=== PATIENT | male | born 1960 | race Caucasian/White ===

== ENCOUNTER 2016-07-24 11:38 | Emergency (ER) | payer OTHER ==
[~2016-07-24] VITALS: Wt 72.7 kg
[~2016-07-24 11:38] MED LIST: ACET500C5 PO; ALBU18HF INHALATION; ALBU8.5H3 INH; ALBU8.5H5 INH; AMOX1TAB10 PO; AZIT250T94 PO; BCL80INH INH; BECL8.7A INH; BENZ100C70 PO; GUAI118L94 PO; IBUP400T22 PO; IPRA3AMP INH; LEVO500T72 PO; LEVO750T25 PO; NEBU1EAC MC; PRED20TA PO; PRED50TA PO
[2016-07-24] MEDS ORDERED: ALBUTEROL 0.5% (NEB) 2.5 MG/0.5 ML AMP HHN STA (12:07)
[2016-07-24] MEDS ORDERED: DEXAMETHASONE 10 MG/ML 1 ML INJ IM ONE (12:30)
[2016-07-24] MEDS ORDERED: IPRATROPIUM (NEB) 0.5 MG/2.5 ML AMP HHN ONE (12:30)
--- NOTE | 2016-07-24 12:56 | RADRPT ---
PROCEDURE: XR Chest. CLINICAL INDICATION: Cough and shortness of breath. TECHNIQUE: Two views. Frontal and lateral. COMPARISON: 05/06/2016. FINDINGS: The lungs are clear. There is mild left upper lobe air space disease consistent with pneumonia. A possible nodule is pre sent in the right mid lung zone measuring 1.5 cm. The lungs are otherwise clear. There is no pleural effusion. There is no pneumothorax. IMPRESSION: 1. Mild left upper lobe pneumonia. 2. Possible nodule in the right mid lung zone. Correlation with CT scan of chest without contrast advised. 3. Otherwise normal chest x-ray. RPTAT: QQ .Car Porras MD, MD Date Time Electronically viewed and signed by .Car Porras MD, MD on 07/24/2016 12:56 .R/
[2016-07-24] MEDS ORDERED: LEVO750T25 PO (13:01)
[2016-07-24] MEDS ORDERED: ALBU8.5H3 INH (13:02)
[2016-07-24] MEDS ORDERED: D-ME473S18 PO (13:02)
[2016-07-24] MEDS ORDERED: ALBU2.5V3 NEB (13:06)
[2016-07-24] MEDS ORDERED: IBUP-1542 PO (13:07)
--- NOTE | 2016-07-24 13:13 | ERD ---
ER Documentation Chief Complaint Date/Time DATE: 07/24/16 TIME: 13:08 Chief Complaint sob, cough. airway intact, speaking in complete sentances. HPI This is a 56-year-old male presents to the ER with a cough for the last 2 days. Patient states that cough is productive and constant. Patient states that he began to feel short of breath yesterday however today shortness of breath is gotten worse. Patient also complaining of chest pain with coughing. He states that he has body pain. He denies any fevers or chills. Patient has a past medical history of asthma and has had pneumonia in the past. Patient has an extensive smoking history however he quit recently secondary to his doctor telling him he may have lung cancer. Has not followed up with any specialists. ROS 12 point review of systems was done, all negative except per HPI. Medications Home Meds Active Scripts Ibuprofen* (Motrin*) 600 Mg Tab, 600 MG PO Q6, #30 TAB Prov:CHIDI TAN 07/24/16 Albuterol Sulfate* (Albuterol Sulfate* Neb) 0.083%-3 Ml Neb, 2.5 MG NEB Q4 Y for SHORTNESS OF BREATH, #30 EA Prov:CHIDI TAN 07/24/16 Dextromethorphan Hb-Promethazine Hcl (Promethazine DM Syrup) 473 Ml Syrup, 10 ML PO Q6H Y for COUGH, #4 OZ Prov:CHIDI TAN 07/24/16 Albuterol Sulfate* (Proair HFA*) 8.5 Gm Hfa.aer.ad, 2 PUFF INH Q4, #1 INHALER Prov:CHIDI TAN 07/24/16 Levofloxacin* (Levaquin*) 750 Mg Tablet, 750 MG PO DAILY for 5 Days, TAB Prov:CHIDI TAN 07/24/16 Levofloxacin* (Levaquin*) 750 Mg Tablet, 750 MG PO DAILY for 5 Days, TAB Prov:JOSIE BARRAGAN PA-C 05/06/16 Albuterol Sulfate* (Ventolin HFA*) 18 Gm Hfa.aer.ad, 2 PUFF INHALATION Q4H, #1 INHALER Prov:JOSIE BARRAGAN PA-C 10/25/16 Prednisone* (Prednisone*) 50 Mg Tablet, 50 MG PO DAILY for 5 Days, TAB Prov:REN PEREZ NP 11/20/15 Guaifenesin-Codeine Phosphate* (Guaifenesin* with Codeine Liq) 120 Ml Liquid, 5 ML PO Q4H for COUGH, #60 ML Prov:REN PEREZ NP 11/20/15 Beclomethasone Dip (Qvar 80) 1 Puff Inha, 2 PUFF INH BID, #1 INHALER RINSE MOUTH AFTER EACH USE Prov:REN PEREZ NP 11/20/15 Albuterol Sulfate* (Proair HFA*) 8.5 Gm Hfa.aer.ad, 2 PUFF INH Q4H Y for WHEEZING AND SOB, #1 INHALER Prov:REN PEREZ NP 11/20/15 Acetaminophen* (Tylophen*) 500 Mg Capsule, 1 CAP PO Q6H Y for PAIN AND OR ELEVATED TEMP, #30 CAP 0 Refills Prov:CHAPARRO BRANDC 10/15/15 Ibuprofen* (Motrin*) 400 Mg Tab, 400 MG PO Q6, #30 TAB 0 Refills Prov:CHAPARRO BRAND-C 10/15/15 Amox Tr/Potassium Clavulanate (Amox Tr-K Clv 875-125 Mg Tab) 1 Tab Tablet, 1 TAB PO BID, #20 TAB 0 Refills Prov:CHAPARRO BRAND-C 10/15/15 Benzonatate* (Tessalon Perle*) 100 Mg Capsule, 100 MG PO Q8H Y for COUGH, #30 CAP Prov:REN PEREZ NP 10/01/15 Beclomethasone Dip* (Qvar 40*) 7.3 Gm Inha, 2 PUFF INH BID, #1 INHALER Prov:REN PEREZ NP 10/01/15 Levofloxacin* (Levaquin*) 500 Mg Tablet, 500 MG PO DAILY for 7 Days, TAB Prov:REN PEREZ NP 10/01/15 Guaifenesin-Codeine Phosphate* (Guaifenesin* with Codeine Liq) 120 Ml Liquid, 5 ML PO Q4H for COUGH, #60 ML Prov:REN PEREZ [employer] 10/01/15 Prednisone* (Prednisone*) 50 Mg Tablet, 50 MG PO DAILY for 5 Days, TAB Prov:REN PEREZ [employer] 10/01/15 Albuterol Sulfate* (Proair HFA*) 8.5 Gm Hfa.aer.ad, 2 PUFF INH Q4H Y for WHEEZING AND SOB, #1 INHALER Prov:REN PEREZ [employer] 10/01/15 Beclomethasone Dip* (Qvar 40*) 7.3 Gm Inha, 2 PUFF INH BID, #1 INH Prov:REN PEREZ [employer] 08/15/15 Albuterol Sulfate* (Proair HFA*) 8.5 Gm Hfa.aer.ad, 2 PUFF INH Q4H Y for WHEEZING AND SOB, #1 INHALER Prov:REN PEREZ [employer] 08/15/15 Azithromycin* (Zithromax*) 250 Mg Tablet, 250 MG PO .ZPACK DIRECTED, #6 TAB TAKE 500 MG (2 TABS) THE FIRST DAY THEN 250 MG (1 TAB) DAYS 2-5 Prov:REN PEREZ [employer] 08/15/15 Nebulizer* (Nebulizer*) 1 Pkt Each, 1 EACH DIRECTED, #1 DME 0 Refills Prov:MAURICE BRAGA DO 06/27/15 Prednisone* (Prednisone*) 20 Mg Tab, 60 MG PO DAILY for 4 Days, TAB Prov:MAURICE BRAGA DO 06/27/15 Ipratropium-Albuterol (Ipratropium-Albuterol) 0.5-3 Mg/3 Ml Ampul.neb, 3 ML INH Q4H Y for SHORTNESS OF BREATH, #30 AMP Prov:MAURICE BRAGA DO 06/27/15 Albuterol Sulfate* (Albuterol Sulfate* HFA) 8.5 Gm Hfa.aer.ad, 1-2 PUFF INH Q4 Y for SHORTNESS OF BREATH, #1 EA Prov:MAURICE BRAGA DO 06/27/15 Azithromycin* (Zithromax*) 250 Mg Tablet, 250 MG PO .ZPACK DIRECTED, #6 TAB TAKE 500 MG (2 TABS) THE FIRST DAY THEN 250 MG (1 TAB) DAYS 2-5 Prov:MARY LOUCIARAANTHONYNGUYỄNErick LeeKaruna ALBERTO 06/27/15 Albuterol Sulfate* (Albuterol Sulfate* HFA) 8.5 Gm Hfa.aer.ad, 1-2 PUFF INH Q4 Y for SHORTNESS OF BREATH, #1 EA Prov:ANA FLOWERS PA-C 12/25/14 Allergies Allergies: Coded Allergies: No Known Drug Allergies (Verified Allergy, Unknown, 05/06/16) PMhx/Soc History of Surgery: No Anesthesia Reaction: No Hx Neurological Disorder: No Hx Respiratory Disorders: Yes (asthma , PNEUMONIA ) Hx Cardiac Disorders: No Hx Psychiatric Problems: No Hx Miscellaneous Medical Probl: No Hx Alcohol Use: No Hx Substance Use: No Hx Tobacco Use: Yes Smoking Status: Current every day smoker Physical Exam Vitals Vital Signs Date Time Temp Pulse Resp B/P Pulse Ox O2 Delivery O2 Flow Rate FiO2 07/24/16 11:48 98.2 77 20 132/87 100 Physical Exam GENERAL: The patient is well developed and appropriate for usual state of health , in no apparent distress. HEENT: Atraumatic. Conjunctivae are pink. Pupils equal, round, and reactive to light. Extraocular muscles are grossly intact. Bilateral tympanic membranes are clear with no evidence of erythema, effusion or dulling of the light reflex. The oropharynx is clear with no erythema or exudates. CHEST: Expiratory wheezing in all lung tobin. There is no rales rhonchi or crackles. Patient is speaking in full sentences he does not have any stridor, he is not tripoding. HEART: Regular rate and rhythm. No murmurs, clicks, rubs or gallops. NEURO: Alert and oriented. SKIN: etechia. The skin is warm and dry. Results 24 hrs Current Medications Medications (Trade) Dose Ordered Sig/Keturah Route PRN Reason Start Time Stop Time Status Last Admin Dose Admin Albuterol (Proventil 0.5% (Neb)) 10 mg ONCE STAT HHN 07/24/16 12:07 07/24/16 12:10 DC 07/24/16 12:53 Ipratropium [place] (Atrovent 0.02% (Neb)) 0.5 mg ONCE ONCE HHN 07/24/16 12:30 07/24/16 12:31 DC 07/24/16 12:53 Dexamethasone (Decadron) 10 mg ONCE ONCE IM 07/24/16 12:30 07/24/16 12:31 DC 07/24/16 12:19 Procedures/MDM This is a 56-year-old male that presents to the ER with cough, shortness of breath and body pain. Patient does have pneumonia on x-ray. Patient was given a nebulizing treatment here in the ER with albuterol and ipratropium. Patient felt significantly better after treatment. Patient's oxygen was always at 100% and he was not in any respiratory distress. She is afebrile and well- appearing. His EKG was normal and read by Dr. [id number] elevation no t wave inversion. Patient needs to follow-up with his primary care doctor within 1-2 days or return to ER sooner if symptoms worsen. My medical decision making shared with the patient he understands and agrees with plan. Departure Diagnosis: Primary Impression: Pneumonia Condition: Stable Patient Instructions: Pneumonia (Adult) Additional Instructions: Call your primary care doctor TOMORROW for an appointment during the next 1-2 days.See the doctor sooner or return here if your condition worsens before your appointment time. CHIDI TAN Jul 24, 2016 13:12
[2016-07-24 13:34] VITALS: TEMP 98.5
== END 2016-07-24 13:34 | disposition home or self-care (01) ==
LOC: FTE 11:38
DX: J18.9 Pneumonia, unspecified organism (principal); F17.210 Nicotine dependence, cigarettes, uncomplicated; J45.901 Unspecified asthma with (acute) exacerbation
CPT/HCPCS: 71020; 93005; 94644; 96372; J1100; Z7502; Z7610

== ENCOUNTER 2016-08-05 01:00 | Emergency (ER) | END 2016-08-05 15:13 | disposition home or self-care (01) | DX: J18.9 Pneumonia, unspecified organism (principal); J45.909 Unspecified asthma, uncomplicated; R40.2142 Coma scale, eyes open, spontaneous, at arrival to emergency department; R40.2252 Coma scale, best verbal response, oriented, at arrival to emergency department; R40.2362 Coma scale, best motor response, obeys commands, at arrival to emergency department; Z87.891 Personal history of nicotine dependence | CPT/HCPCS: 71010; 80048; 83540; 83605; 85025; 87040; 94644; J0456; J0696; J2930; Z7610 ==

== ENCOUNTER 2016-12-15 17:03 | Emergency (ER) | payer BC, OTHER ==
[~2016-12-15] VITALS: Ht 172.7 cm; Wt 72.0 kg
[~2016-12-15 17:03] MED LIST changes: -ACET500C5 PO; -ALBU18HF INHALATION; -ALBU8.5H3 INH; -ALBU8.5H5 INH; -AMOX1TAB10 PO; -AZIT250T94 PO; -BCL80INH INH; -BECL8.7A INH; -BENZ100C70 PO; +FLUT12HF2 IH; -GUAI118L94 PO; -IBUP400T22 PO; -IPRA3AMP INH; -LEVO500T72 PO; -LEVO750T25 PO; -NEBU1EAC MC; -PRED20TA PO; -PRED50TA PO
[2016-12-15 17:19] VITALS: Ht 172.7 cm; Wt 72.0 kg
[2016-12-15] MEDS ORDERED: ALBUTEROL 0.083% (NEB) 2.5 MG/3 ML AMP HHN STA ×2 (17:49→19:55)
--- NOTE | 2016-12-15 17:56 | ERD ---
ER Documentation Chief Complaint Date/Time DATE: 12/15/16 TIME: 17:54 Chief Complaint PRODUCTIVE COUGH TO GREENISH COLORED PHLEGM, FEVER HPI Patient is a 56-year-old male with a past medical history of bronchitis and multiple episodes of pneumonia and asthma who presents to the ED with productive cough, fever 3 days. States that he has had tactile fevers. He states that his symptoms are similar to what he has experienced in the past. He denies chest pain. Denies leg pain or leg swelling. Denies recent surgery or recent travel. Denies night sweats. Denies green or bloody sputum states that he has used his inhaler and breathing treatment at home which has helped minimally. Denies history of DVT or stroke. ROS All systems reviewed and are negative except as per history of present illness. Medications Home Meds Active Scripts Albuterol Sulfate* (Proair HFA*) 8.5 Gm Hfa.aer.ad, 2 PUFF INH Q4, #1 INHALER Prov:GALDINO COOPER PA-C 12/15/16 Azithromycin* (Zithromax*) 250 Mg Tablet, 250 MG PO .ZPACK DIRECTED, #6 TAB TAKE 500 MG (2 TABS) THE FIRST DAY THEN 250 MG (1 TAB) DAYS 2-5 Prov:GALDINO COOPER PA-C 12/15/16 Salmeterol Xinaf-Fluticasone* (Advair HFA*) 115/21 Aerosol Inhaler, 2 INH IH BID , #1 INHALER Prov:JILLIAN MCBRIDE MD 08/05/16 Discontinued Scripts Azithromycin* (Zithromax*) 500 Mg Tablet, 500 MG PO DAILY for 5 Days, TAB Prov:GALDINO COOPER PA-C 12/15/16 Allergies Allergies: Coded Allergies: No Known Drug Allergies (Verified Allergy, Unknown, 08/05/16) PMhx/Soc History of Surgery: No Anesthesia Reaction: No Hx Neurological Disorder: No Hx Respiratory Disorders: Yes (ASTHMA, multiple episodes of pneumonia) Hx Cardiac Disorders: No Hx Psychiatric Problems: No Hx Miscellaneous Medical Probl: No Hx Alcohol Use: No Hx Substance Use: No Hx Tobacco Use: No ("quit last month") FmHx Family History: No coronary disease, No diabetes, No other Physical Exam Vitals Vital Signs Date Time Temp Pulse Resp B/P Pulse Ox O2 Delivery O2 Flow Rate FiO2 12/15/16 20:41 98.6 88 18 96 Room Air 12/15/16 20:10 98 18 94 21 12/15/16 19:54 93 Room Air 12/15/16 18:19 113 19 94 21 12/15/16 17:19 98.7 113 19 108/63 94 Physical Exam GENERAL: Well-developed, well-nourished male. Appears in no acute distress. HEAD: Normocephalic, atraumatic. EYES: Pupils are equally reactive bilaterally. EOMs grossly intact. No conjunctival erythema. ENT: Moist mucous membranes. No uvula deviation. No kissing tonsils. No exudates. NECK: Supple. No lymphadenopathy or thyromegaly. No meningismus. negative kernig. negative brudinski. LUNG: Clear to auscultation bilaterally. No rhonchi, wheezing, rales or coarse breath sounds. HEART: Regular rate and rhythm. No murmurs, rubs or gallops. Extremities: Equal pulses bilaterally. No peripheral clubbing, cyanosis or edema. No unilateral leg swelling. NEUROLOGIC: Alert and oriented. Moving all four extremities. 5/5 strength in all extremities. Normal speech. Steady gait. SKIN: Normal color. Warm and dry. No rashes or lesions. Capillary refill < 2 seconds Results 24 hrs Current Medications Medications (Trade) Dose Ordered Sig/Keturah Route PRN Reason Start Time Stop Time Status Last Admin Dose Admin Albuterol (Proventil 0.083% (Neb)) 5 mg ONCE STAT HHN 12/15/16 17:49 12/15/16 17:51 DC 12/15/16 18:19 Ipratropium [place] (Atrovent 0.02% (Neb)) 0.5 mg ONCE ONCE HHN 12/15/16 18:00 12/15/16 18:01 DC 12/15/16 18:19 Methylprednisolone Sodium Succinate (Solu-Medrol) 125 mg ONCE ONCE IM 12/15/16 18:00 12/15/16 18:01 DC 12/15/16 18:13 Ceftriaxone Sodium (Rocephin) 1 gm ONCE ONCE IM 12/15/16 19:30 12/15/16 19:31 DC 12/15/16 19:34 Lidocaine (Xylocaine 1% (Mdv) 20 ml) 20 ml ONCE ONCE SC 12/15/16 19:30 12/15/16 19:31 DC 12/15/16 19:34 Albuterol (Proventil 0.083% (Neb)) 5 mg ONCE STAT HHN 12/15/16 19:55 12/15/16 19:56 DC 12/15/16 20:09 Procedures/MDM ER COURSE: I kept the patient and/or family informed of laboratory and diagnostic imaging results throughout the emergency room course. IMAGING STUDIES [place] [id number] Radiology Main Line: [phone] DIAGNOSTIC IMAGING REPORT Patient: CRISTINO JHAVERI : 1960 Age: 56 Sex: M MR #: [id number] DOS: 12/15/16 1749 Ordering MD: GALDINO COOPER PA-C Location: [facility] Room/Bed: PROCEDURE: XR Chest. CLINICAL INDICATION: 25-year-old male with history of asthma. Cough. TECHNIQUE: Single frontal view of the chest was obtained. COMPARISON: Chest x-ray 08/05/2016. FINDINGS: The soft tissues are normal. The bony elements are normal. The heart, cardiomediastinal silhouette and hilar structures are normal. The pulmonary vasculature is normal. There is a left-sided aorta. There is left apical pleural thickening. There is a consolidative nodular density in the left upper lobe. There are nodular densities which may be the result of mucus plugging in the right lower lobe above the right diaphragm. There are additional interstitial infiltrates along the lower left heart border. Lungs are mildly hyperinflated. There are additional reticular and nodular changes in the periphery of the right upper lobe which are stable. There is bilateral peribronchial thickening. The right costophrenic angle is obscured. The left costophrenic angle is normal. IMPRESSION: 1. There is consolidation in the left upper lobe with left apical pleural thickening. This finding is not improved as compared to 08/05/2016. A CT chest and TB skin testing are recommended for further evaluation. This may be the result of an inflammatory process such as TB or pneumonia. 2. Small airway disease with suspected mucus plugging in the right lower lobe peribronchial cuffing in the perihilar areas. 3. Peripheral infiltrates in the right upper lobe and left lower lung field. RPTAT:AAJJ Gen Zimmerman Physician Date Time Electronically viewed and signed by Gen Zimmerman Physician on 12/15/2016 18:39 JM/ CC: GALDINO COOPER PA-C MEDICATIONS Solu-Medrol 125 mg IM. Tolerated well with no adverse reaction PROCEDURES RT consult. Albuterol and Atrovent. MEDICAL DECISION MAKING: This is a 56-year-old male who presents with cough, fever. Vital signs were reviewed. Patient is afebrile. Patient is not hypoxic. Patient has a history of pneumonia. Chest x-ray and breathing treatment ordered. I reexamined patient after breathing treatment and he stated improvement in symptoms. Does not show signs of respiratory distress. X-rays of by radiologist shows There is consolidation in the left upper lobe with left apical pleural thickening. This finding is not improved as compared to 08/05/2016. A CT chest and TB skin testing are recommended for further evaluation. This may be the result of an inflammatory process such as TB or pneumonia.Small airway disease with suspected mucus plugging in the right lower lobe peribronchial cuffing in the perihilar areas. Peripheral infiltrates in the right upper lobe and left lower lung field. I consulted with Dr. Pavon regarding this patient who reviewed his imaging studies. Patient did not have night sweats or green or bloody sputum therefore I have low suspicion for TB and no CT will be ordered patient was given Rocephin here in the ED. Tolerated well. Patient will be sent home with azithromycin. At this point patient does not need to be admitted. Patient does not show signs of respiratory distress. DISCHARGE: At this time, patient is stable for discharge and outpatient management with no new complaints during the ER course. Patient was sent home with azithromycin and proair and a copy of imaging studies.. Patient will be discharged home with instructions to recheck for new or worsening symptoms such as fever, nausea, weakness, LOC and to follow up with primary care in the next 1-2 days. Patient was advised to return to the ER for any new or worsening symptoms. Plan was discussed and patient and/or family understands and agrees. Home instructions were given. Departure Diagnosis: Primary Impression: Pneumonia Condition: Stable GALDINO COOPER PA-C Dec 15, 2016 17:56
[2016-12-15] MEDS ORDERED: METHYLPREDNISOLONE 125 MG INJ IM ONE (18:00)
[2016-12-15] MEDS ORDERED: IPRATROPIUM (NEB) 0.5 MG/2.5 ML AMP HHN ONE (18:00)
--- NOTE | 2016-12-15 18:39 | RADRPT ---
PROCEDURE: XR Chest. CLINICAL INDICATION: 25-year-old male with history of asthma. Cough. TECHNIQUE: Single frontal view of the chest was obtained. COMPARISON: Chest x-ray 08/05/2016. FINDINGS: The soft tissues are normal. The bony elements are normal. The heart, cardiomediastinal silhouette and hilar structures are normal. The pulmonary vasculature is normal. There is a left-sided aorta. There is left apical pleural thickening. There is a consolidative nodular density in the left uppe r lobe. There are nodular densities which may be the result of mucus plugging in the right lower lo be above the right diaphragm. There are additional interstitial infiltrates along the lower left he art border. Lungs are mildly hyperinflated. There are additional reticular and nodular changes in the periphery of the right upper lobe which are stable. There is bilateral peribronchial thickening . The right costophrenic angle is obscured. The left costophrenic angle is normal. IMPRESSION: 1. There is consolidation in the left upper lobe with left apical pleural thickening. This finding is not improved as compared to 08/05/2016. A CT chest and TB skin testing are recommended for [facility] evaluation. This may be the result of an inflammatory process such as TB or pneumonia. 2. Small airway disease with suspected mucus plugging in the right lower lobe peribronchial cuffing in the perihilar areas. 3. Peripheral infiltrates in the right upper lobe and left lower lung field. RPTAT:AAJJ Physician Bill Date Time Electronically viewed and signed by Gen Zimmerman Physician on 12/15/2016 18:39 JANESSA/
[2016-12-15] MEDS ORDERED: AZIT500T3 PO (19:24)
[2016-12-15] MEDS ORDERED: AZIT250T94 PO (19:28)
[2016-12-15] MEDS ORDERED: ALBU8.5H3 INH (19:28)
[2016-12-15] MEDS ORDERED: CEFTRIAXONE 1 GM INJ IM ONE (19:30)
[2016-12-15] MEDS ORDERED: LIDOCAINE 1% (MDV) 20 ML INJ SC ONE (19:30)
[2016-12-15 20:41] VITALS: PULSE 88; RESP 18; TEMP 98.6
== END 2016-12-15 20:42 | disposition home or self-care (01) ==
LOC: FTE 17:03
DX: J18.9 Pneumonia, unspecified organism (principal); J45.909 Unspecified asthma, uncomplicated; Z87.891 Personal history of nicotine dependence
CPT/HCPCS: 71010; 93005; 94640; 94664; 96372; 99284; J0696; J2930; Z7610

== ENCOUNTER 2017-02-18 12:26 | Emergency (ER) | payer BC ==
[~2017-02-18] VITALS: Ht 170.2 cm; Wt 74.0 kg
[~2017-02-18 12:26] MED LIST changes: +ALBU8.5H3 INH; +AZIT250T94 PO
[2017-02-18 12:32] VITALS: Ht 170.2 cm; Wt 74.0 kg
[2017-02-18] MEDS ORDERED: ALBUTEROL 0.083% (NEB) 2.5 MG/3 ML AMP HHN STA ×2 (12:51→12:53)
[2017-02-18] MEDS ORDERED: CEFTRIAXONE 1 GM INJ IM ONE (13:00)
[2017-02-18] MEDS ORDERED: IPRATROPIUM (NEB) 0.5 MG/2.5 ML AMP HHN ONE (13:00)
[2017-02-18] MEDS ORDERED: LIDOCAINE 1% (MDV) 20 ML INJ SC ONE (13:00)
--- NOTE | 2017-02-18 14:30 | RADRPT ---
PROCEDURE: XR Chest AP portable CLINICAL INDICATION: Cough TECHNIQUE: An AP portable radiograph of the chest was submitted. COMPARISON: 12/15/2016 FINDINGS: Support Hardware: None Cardiovascular: The cardiovascular silhouette appears unremarkable. Lung Tobin: The patchy areas of alveolar infiltrate have resolved except for small residual density seen in the pulmonary apices again greater on the left than the right, but significantly improved o n the left. Pleural Spaces: No pneumothorax or pleural effusion is identified. Osseous Structures: The osseous structures appear intact. Soft Tissues: The soft tissues appear unremarkable. IMPRESSION: 1. The patchy areas of alveolar infiltrate seen in the lung tobin bilaterally have resolved except for slight persistent irregular density seen in the apices bilaterally which has significantly impr vandana on the left. 2. Otherwise, stable unremarkable chest. Physician Clifford Date Time Electronically viewed and signed by Physician Clifford on 02/18/2017 14:29 /
[2017-02-18] MEDS ORDERED: SULF1TAB31 PO (14:55)
[2017-02-18] MEDS ORDERED: CEPH-443 PO (14:55)
[2017-02-18] MEDS ORDERED: ALB.5NB20 INHALATION ×2 (14:55→15:07)
[2017-02-18] MEDS ORDERED: HYDR-906 PO (15:07)
--- NOTE | 2017-02-18 16:06 | ERD ---
ER Documentation Chief Complaint Date/Time DATE: 02/18/17 TIME: 15:54 Chief Complaint left below knee redness x2 days HPI 56-year-old male coming in complaining of erythema noted to the left side of his right knee. Redness has been there for 3 days. Patient denies any IV drug use. Denies fever. Has not taken medication for the symptoms. Does not hurt to move his knee. Does not recall a possible foreign body entering into wound. Patient also complaining of cough. He was diagnosed with PNA and given abx. Patient has persistent cough that is productive. Patient has history of asthma. He is requesting chest x-ray to determine if PNA has resolved. Patient has run out of albuterol and is requesting a refill. ROS All systems reviewed and are negative except as per history of present illness. Medications Home Meds Active Scripts Albuterol Sulfate* (Albuterol Sulfate* Neb) 20 Ml Nebu, 2.5 MG INHALATION Q4H, # 1 BOTTLE Prov:LÓPEZ BEST PA-C 02/18/17 Cephalexin* (Keflex*) 500 Mg Capsule, 500 MG PO QID for 7 Days, CAP Prov:LÓPEZ BEST PA-C 02/18/17 Sulfamethoxazole/Trimethoprim* (Bactrim Ds* Tablet) 1 Each Tablet, 1 TAB PO BID , #14 TAB Prov:LÓPEZ BEST PA-C 02/18/17 Albuterol Sulfate* (Proair HFA*) 8.5 Gm Hfa.aer.ad, 2 PUFF INH Q4, #1 INHALER Prov:GALDINO COOPER PA-C 12/15/16 Azithromycin* (Zithromax*) 250 Mg Tablet, 250 MG PO .ZPACK DIRECTED, #6 TAB TAKE 500 MG (2 TABS) THE FIRST DAY THEN 250 MG (1 TAB) DAYS 2-5 Prov:GALDINO COOPER PA-C 12/15/16 Salmeterol Xinaf-Fluticasone* (Advair HFA*) 115/21 Aerosol Inhaler, 2 INH IH BID , #1 INHALER Prov:JILLIAN MCBRIDE MD 08/05/16 Allergies Allergies: Coded Allergies: No Known Drug Allergies (Verified Allergy, Unknown, 08/05/16) PMhx/Soc History of Surgery: No Anesthesia Reaction: No Hx Neurological Disorder: No Hx Respiratory Disorders: Yes (ASTHMA, multiple episodes of pneumonia) Hx Cardiac Disorders: No Hx Psychiatric Problems: No Hx Miscellaneous Medical Probl: No Hx Alcohol Use: Yes Hx Substance Use: No Hx Tobacco Use: Yes ("quit last month") Smoking Status: Current every day smoker Physical Exam Vitals Vital Signs Date Time Temp Pulse Resp B/P Pulse Ox O2 Delivery O2 Flow Rate FiO2 02/18/17 14:10 95 19 99 21 02/18/17 12:32 98.5 99 20 126/77 99 Physical Exam Resp: Wheezing heard bilaterally. No focal consolidation heard on auscultation. Cardio: Regular rate and rhythm, no murmurs Abd: Soft, non tender, non distended. Normal bowel sounds Skin: 3 cm circular erythematous site on right medial leg. No lymph streaking. No fluctuance. mild TTP. Neuro intact. Results 24 hrs Current Medications Medications (Trade) Dose Ordered Sig/Keturah Route PRN Reason Start Time Stop Time Status Last Admin Dose Admin Ceftriaxone Sodium (Rocephin) 1 gm ONCE ONCE IM 02/18/17 13:00 02/18/17 13:01 DC 02/18/17 13:14 Lidocaine (Xylocaine 1% (Mdv) 20 ml) 20 ml ONCE ONCE SC 02/18/17 13:00 02/18/17 13:01 DC 02/18/17 13:15 Ipratropium [place] (Atrovent 0.02% (Neb)) 0.5 mg ONCE ONCE HHN 02/18/17 13:00 02/18/17 13:01 DC 02/18/17 13:01 Albuterol (Proventil 0.083% (Neb)) 1.25 mg ONCE STAT HHN 02/18/17 12:51 02/18/17 12:54 DC Albuterol (Proventil 0.083% (Neb)) 2.5 mg ONCE STAT HHN 02/18/17 12:53 02/18/17 12:55 DC 02/18/17 13:01 Procedures/[facility] ER Course: 1 Gram Rocephin injection given in ED. Patient received breathing treatment in the ED. Patient's breath sounds improved after treatment. DIAGNOSTIC IMAGING REPORT Patient: CRISTINO JHAVERI : 1960 Age: 56 Sex: M [id number] DOS: 02/18/17 1251 Ordering MD: NERISSA BEST PA-C Location: [facility] Room/Bed: PROCEDURE: XR Chest AP portable CLINICAL INDICATION: Cough TECHNIQUE: An AP portable radiograph of the chest was submitted. COMPARISON: 12/15/2016 FINDINGS: Support Hardware: None Cardiovascular: The cardiovascular silhouette appears unremarkable. Lung Melton: The patchy areas of alveolar infiltrate have resolved except for small residual density seen in the pulmonary apices again greater on the left than the right, but significantly improved on the left. Pleural Spaces: No pneumothorax or pleural effusion is identified. Osseous Structures: The osseous structures appear intact. Soft Tissues: The soft tissues appear unremarkable. IMPRESSION: 1. The patchy areas of alveolar infiltrate seen in the lung melton bilaterally have resolved except for slight persistent irregular density seen in the apices bilaterally which has significantly improved on the left. 2. Otherwise, stable unremarkable chest. Physician Clifford Date Time Electronically viewed and signed by Physician Clifford on 02/18/2017 14:29 MDM: 56 yr old male complaining of a red site on leg and cough. I have low suspicion for abscess formation. There is no fluctuance on exam. I have low suspicion for lymphatic infection. There is no streaking seem on exam. There was no indication for I&D at today's visit. I have low suspicion for necrotizing fasciitis. I have low suspicion for respiratory distress or worsening PNA. There is improvement seen on CXR. Patient's vital signs are stable patient is nontoxic-appearing. Patient's symptoms improved after breathing treatment. I will discharge with oral antibiotics and recommend close follow-up for cellulitic lesion on leg. I do not feel there is indication for further antibiotic treatment of previous pneumonia. Patient is discharged with albuterol for history of asthma. I did recommend patient return if symptoms change or worsen. Patient is to comply plan all question of some discharge. She will follow up with primary care within 1-2 days for close follow Departure Diagnosis: Primary Impression: Cellulitis Additional Impression: Asthma with acute exacerbation Condition: Stable Patient Instructions: Cellulitis, Asthma, Acute (Adult) Additional Instructions: FOLLOW UP WITH YOUR PRIMARY CARE PHYSICIAN TOMORROW.Return to this facility if you are not improving as expected. LÓPEZ BEST PA-C Feb 18, 2017 16:06
== END 2017-02-18 15:16 | disposition home or self-care (01) ==
LOC: FTE 12:26
DX: L03.115 Cellulitis of right lower limb (principal); J45.901 Unspecified asthma with (acute) exacerbation; F17.210 Nicotine dependence, cigarettes, uncomplicated; R05 Cough
CPT/HCPCS: 71010; 94664; J0696; Z7610; 96372

== ENCOUNTER 2017-04-29 01:21 | Emergency (ER) | payer BC ==
[~2017-04-29] VITALS: Ht 167.6 cm; Wt 80.0 kg
[~2017-04-29 01:21] MED LIST changes: +ALB.5NB20 INHALATION; +CEPH-443 PO; +SULF1TAB31 PO
[2017-04-29 01:23] VITALS: Ht 167.6 cm; Wt 80.0 kg
[2017-04-29] MEDS ORDERED: ALBUTEROL 0.5% (NEB) 2.5 MG/0.5 ML AMP INH STA (03:47)
[2017-04-29] MEDS ORDERED: METHYLPREDNISOLONE 125 MG INJ IM STA (03:47)
[2017-04-29] MEDS ORDERED: IPRATROPIUM (NEB) 0.5 MG/2.5 ML AMP NEB STA (03:47)
--- NOTE | 2017-04-29 04:15 | ERD ---
ER Documentation Chief Complaint Date/Time DATE: 04/29/17 TIME: 04:13 Chief Complaint c/o SB x 2 days. Hx of asthma and bronchitis. HPI 56-year-old male presents here to emergency department for complaints of cough shortness of breath and wheezing for 2 days. Patient has history of asthma. Patient started to have symptoms again 2 days ago. Patient has been having dry cough, denies any fever or chills. Patient does not cough up in the femoral blood. Patient denies any chest pain or palpitations. Patient denies any dizziness. ROS All systems reviewed and are negative except as per history of present illness. Medications Home Meds Active Scripts Beclomethasone Dipropionate (QNASL) 8.7 Gm Hfa.aer.ad, 2 SPRAYS NASAL DAILY, #1 BOTTLE PER NOSTRIL Prov:REN PEREZ NP 04/29/17 Albuterol Sulfate* (Proair HFA*) 8.5 Gm Hfa.aer.ad, 2 PUFF INH Q4H Y for WHEEZING AND SOB, #1 INHALER Prov:REN PEREZ NP 04/29/17 Prednisone* (Prednisone*) 50 Mg Tablet, 50 MG PO DAILY, #5 TAB Prov:REN PEREZ NP 04/29/17 Guaifenesin-Codeine Phosphate* (Guaifenesin* AC Cough Syrup) 473 Ml Liquid, 5 ML PO Q4H Y for COUGH, #60 ML Prov:REN PEREZ NP 04/29/17 Levofloxacin* (Levaquin*) 500 Mg Tablet, 500 MG PO DAILY for 7 Days, TAB Prov:REN PEREZ NP 04/29/17 Albuterol Sulfate* (Albuterol Sulfate* Neb) 20 Ml Nebu, 2.5 MG INHALATION Q4H, # 1 BOTTLE Prov:LÓPEZ BEST PA-C 02/18/17 Cephalexin* (Keflex*) 500 Mg Capsule, 500 MG PO QID for 7 Days, CAP Prov:LÓPEZ BEST PA-C 02/18/17 Sulfamethoxazole/Trimethoprim* (Bactrim Ds* Tablet) 1 Each Tablet, 1 TAB PO BID , #14 TAB Prov:LÓPEZ BEST PA-C 02/18/17 Albuterol Sulfate* (Proair HFA*) 8.5 Gm Hfa.aer.ad, 2 PUFF INH Q4, #1 INHALER Prov:GALDINO COOPER PA-C 12/15/16 Azithromycin* (Zithromax*) 250 Mg Tablet, 250 MG PO .ZPACK DIRECTED, #6 TAB TAKE 500 MG (2 TABS) THE FIRST DAY THEN 250 MG (1 TAB) DAYS 2-5 Prov:GALDINO COOPER PA-C 12/15/16 Salmeterol Xinaf-Fluticasone* (Advair HFA*) 115/ Aerosol Inhaler, 2 INH IH BID , #1 INHALER Prov:JILLIAN MCBRIDE MD 08/05/16 Allergies Allergies: Coded Allergies: No Known Drug Allergies (Verified Allergy, Unknown, 08/05/16) PMhx/Soc History of Surgery: No Anesthesia Reaction: No Hx Neurological Disorder: No Hx Respiratory Disorders: Yes (ASTHMA, multiple episodes of pneumonia) Hx Cardiac Disorders: No Hx Psychiatric Problems: No Hx Miscellaneous Medical Probl: No Hx Alcohol Use: No Hx Substance Use: No Hx Tobacco Use: No Smoking Status: Former smoker FmHx Family History: No coronary disease, No diabetes, No other Physical Exam Vitals Vital Signs Date Time Temp Pulse Resp B/P Pulse Ox O2 Delivery O2 Flow Rate FiO2 04/29/17 05:08 100 20 92 Room Air 04/29/17 04:12 93 20 98 21 04/29/17 01:23 98.8 123 24 111/67 93 Physical Exam GENERAL: The patient is well developed and appropriate for usual state of health, in no apparent distress. CHEST: Diffuse wheezing noted bilaterally. There are no crackles or rhonchi. HEART: Regular rate and rhythm. No murmurs, clicks, rubs or gallops. No S3 or S4. ABDOMEN: Soft, nontender and nondistended. Good bowel sounds. No rebound or guarding. No gross peritonitis. No gross organomegaly or masses. No Mcintosh sign or McBurney point tenderness. BACK: No midline or flank tenderness. EXTREMITIES: Equal pulses bilaterally. There is no peripheral clubbing, cyanosis or edema. No focal swelling or erythema. Full range of motion. Grossly neurovascularly intact. NEURO: Alert and oriented. Cranial nerves 2-12 intact. Motor strength in all 4 extremities with 5/5 strength. Sensation grossly intact. Normal speech and gait. SKIN: There is no apparent rash or petechia. The skin is warm and dry. HEMATOLOGIC AND LYMPHATIC: There is no evidence of excessive bruising or lymphedema. No gross cervical, axillary, or inguinal lymphadenopathy. Results 24 hrs Current Medications Medications (Trade) Dose Ordered Sig/Keturah Route PRN Reason Start Time Stop Time Status Last Admin Dose Admin Ipratropium [place] (Atrovent 0.02% (Neb)) 1.5 mg ONCE STAT NEB 04/29/17 03:47 04/29/17 03:49 DC 04/29/17 04:11 Albuterol (Proventil 0.5% (Neb)) 10 mg ONCE STAT INH 04/29/17 03:47 04/29/17 03:49 DC 04/29/17 04:11 Methylprednisolone Sodium Succinate (Solu-Medrol) 125 mg ONCE STAT IM 04/29/17 03:47 04/29/17 03:49 DC 04/29/17 03:58 Breathing treatment of albuterol and Atrovent Solu-Medrol IM was given here in emergency department, after treatment, patient's lungs sounds are clear and patient's oxygenation is better. Patient verbalized feeling much better. PROCEDURE: Chest. CLINICAL INDICATION: Asthma exacerbation. TECHNIQUE: Single frontal view of the chest was obtained. COMPARISON: 02/18/2017. FINDINGS: The cardiac silhouette is within normal limits. The aortic arch is calcified. There are increased interstitial markings bilaterally. There is no pleural effusion. There is no pneumothorax. IMPRESSION: Bilateral increased interstitial markings could represent interstitial edema or infiltrates, increased compared with the prior study. Aortic atherosclerosis. .Vincent Cohen MD, Date Time Electronically viewed and signed by .Vincent Cohen MD, MD on 04/29/2017 04:48 .T/ CC: REN PEREZ CLAIM CLERK Procedures/MDM Medical Decision Making: Patient symptoms are most likely consistent with acute bronchitis, which viral in origin. There is low suspicion for Pneumonia at this time since patients lungs sounds are clear, patient O2 saturation is normal and patient doesnt show any respiratory distress. Patients chest xray doesnt show infiltrates or any other cardiopulmonary emergencies at this time. There is low suspicion for other cardiopulmonary emergencies at this time such as CHF, Pulmonary Embolism, Pneumothorax, Aortic Aneurysm or any other cardiopulmonary emergencies at this time. There is low suspicion for sepsis. Patient appears well and is hemodynamically stable. Fever is controlled with medicines. Disposition: Home. Condition: Stable Prescriptions: Levaquin, Albuterol Qvar, Prednisone, Guaifenasin with codeine Instructions: Patient is advised to take medications as prescribed. Patient is advised to rest. Patient advised to increase fluid intake, do humidifier at home and if possible, do salt water gargles. Patient is advised that if symptoms are worse, shortness of breath, uncontrolled fever, stridor, vomiting, worst signs and symptoms to return to emergency department immediately. Otherwise, patient is advised to follow up with primary doctor in 5-7 days. Disclaimer: Inadvertent spelling and grammatical errors are likely due to EHR/ dictation software use and do not reflect on the overall quality of patient care. Also, please note that the electronic time recorded on this note does not necessarily reflect the actual time of the patient encounter. Departure Diagnosis: Primary Impression: Acute bronchitis Bronchitis organism: unspecified organism Qualified Code: J20.9 - Acute bronchitis, unspecified organism Additional Impression: Asthma with acute exacerbation Asthma severity: unspecified severity Asthma persistence: unspecified Qualified Code: J45.901 - Asthma with acute exacerbation, unspecified asthma severity, unspecified whether persistent Condition: Stable Patient Instructions: Bronchitis With Wheezing (Adult) Additional Instructions: Patient is advised to take medications as prescribed. Patient is advised to rest. Patient advised to increase fluid intake, do humidifier at home and if possible, do salt water gargles. Patient is advised that if symptoms are worse, shortness of breath, uncontrolled fever, stridor, vomiting, worst signs and symptoms to return to emergency department immediately. Otherwise, patient is advised to follow up with primary doctor in 5-7 days. REN PEREZ NP Apr 29, 2017 04:15
--- NOTE | 2017-04-29 04:48 | RADRPT ---
PROCEDURE: Chest. CLINICAL INDICATION: Asthma exacerbation. TECHNIQUE: Single frontal view of the chest was obtained. COMPARISON: 02/18/2017. FINDINGS: The cardiac silhouette is within normal limits. The aortic arch is calcified. There are increased interstitial markings bilaterally. There is no pleural effusion. There is no pneumothorax. IMPRESSION: Bilateral increased interstitial markings could represent interstitial edema or infiltrates, increas ed compared with the prior study. Aortic atherosclerosis. .Vincent Cohen MD, Date Time Electronically viewed and signed by .Vincent Cohen MD, MD on 04/29/2017 04:48 .T/
[2017-04-29] MEDS ORDERED: PRED50TA PO (04:54)
[2017-04-29] MEDS ORDERED: BECL8.7H NASAL (04:54)
[2017-04-29] MEDS ORDERED: LEVO500T72 PO (04:54)
[2017-04-29] MEDS ORDERED: ALBU8.5H3 INH (04:54)
[2017-04-29] MEDS ORDERED: GUAI473L22 PO (04:54)
[2017-04-29 05:08] VITALS: PULSE 100; RESP 20
== END 2017-04-29 05:08 | disposition home or self-care (01) ==
LOC: FTE 01:21
DX: J20.9 Acute bronchitis, unspecified (principal); J45.901 Unspecified asthma with (acute) exacerbation; Z87.891 Personal history of nicotine dependence
CPT/HCPCS: 71010; 94644; 96372; 99284; J2930; Z7610

== ENCOUNTER 2017-10-03 05:21 | Emergency (ER) | END 2017-10-03 08:25 | disposition home or self-care (01) ==

== ENCOUNTER 2017-10-16 11:01 | Emergency (ER) | END 2017-10-16 14:57 | disposition home or self-care (01) ==

== ENCOUNTER 2017-12-19 00:29 | Emergency (ER) | END 2017-12-19 05:14 | disposition home or self-care (01) ==

== ENCOUNTER 2018-02-26 23:58 | Emergency (ER) | END 2018-02-27 06:54 | disposition home or self-care (01) ==

== ENCOUNTER 2018-04-02 17:53 | Emergency (ER) | END 2018-04-03 00:13 | disposition left against medical advice (07) ==

== ENCOUNTER 2018-09-25 06:30 | Emergency (ER) | payer BC ==
[~2018-09-25] VITALS: Ht 175.3 cm; Wt 74.0 kg
[~2018-09-25 06:30] MED LIST changes: -ALB.5NB20 INHALATION; +ALBU18HF INHALATION; +ALBU2.5V3 NEB; -ALBU8.5H3 INH; +ALBU8.5H8 INH; -AZIT250T94 PO; +BECL10.62 IH; -CEPH-443 PO; -FLUT12HF2 IH; +LEVO750T25 PO; -SULF1TAB31 PO
[2018-09-25 06:33] VITALS: Ht 175.3 cm; Wt 74.0 kg
[2018-09-25] MEDS ORDERED: ALBUTEROL 0.5% (NEB) 2.5 MG/0.5 ML AMP INH STA (08:02)
[2018-09-25] MEDS ORDERED: IPRATROPIUM (NEB) 0.5 MG/2.5 ML AMP NEB STA (08:02)
[2018-09-25] MEDS ORDERED: DEXAMETHASONE 10 MG/ML 1 ML INJ IM STA (08:02)
--- NOTE | 2018-09-25 08:10 | ERD ---
ER Documentation Chief Complaint Chief Complaint cough , vomiting , chest congestion x 3 days HPI Patient is a 58-year-old male with past medical history of asthma presents the ER for concerns of productive cough and wheezing times 10 days. Patient reports green sputum production. He denies any vomiting however he states he is spitting up the sputum. Patient states he is ran out of his inhalers. Patient requesting refill of inhaler. Patient denies any fevers or chills. Patient denies any chest pain. Patient denies previous intubation or hospitalization for asthma. Patient denies any sore throat, abdominal pain, nausea, vomiting or LOC. ROS All systems reviewed and are negative except as per history of present illness. Medications Home Meds Active Scripts Doxycycline Hyclate* (Doxycycline Hyclate*) 100 Mg Tablet.dr, 100 MG PO BID for 7 Days, TAB Prov:YOLA QUIGLEY PA-C 09/25/18 Albuterol Sulfate* (Proair HFA*) 8.5 Gm Hfa.aer.ad, 2 PUFF INH Q4, #1 INHALER Prov:YOLA QUIGLEY PA-C 09/25/18 Albuterol Sulfate* (Albuterol Sulfate* Neb) 0.083%-3 Ml Neb, 2.5 MG NEB Q4 PRN for SHORTNESS OF BREATH, #30 EA Prov:LUIS DANIEL BRANNON MD 02/27/18 Beclomethasone Dipropionate (Qvar Redihaler (80 MCG)) 10.6 Gm Hfa.aeroba, 10.6 GM IH BID, #1 INH Prov:LUIS DANIEL BRANNON MD 02/27/18 Albuterol Sulfate* (Proair HFA*) 8.5 Gm Hfa.aer.ad, 2 PUFF INH Q4, #1 INHALER Prov:LUIS DANIEL BRANNON MD 02/27/18 Levofloxacin* (Levaquin*) 750 Mg Tablet, 750 MG PO DAILY for 10 Days, TAB Prov:LUIS DANIEL BRANNON MD 02/27/18 Albuterol Sulfate* (Ventolin HFA*) 18 Gm Hfa.aer.ad, 2 PUFF INHALATION Q4H, #1 INHALER Prov:GENARO WILLETT DO 12/19/17 Albuterol Sulfate* (Albuterol Sulfate* Neb) 0.083%-3 Ml Neb, 2.5 MG NEB Q4H, #30 VIAL Prov:GENARO WILLETT DO 12/19/17 Allergies Allergies: Coded Allergies: No Known Drug Allergies (Unverified Allergy, Unknown, 02/27/18) PMhx/Soc History of Surgery: No Anesthesia Reaction: No Hx Neurological Disorder: No Hx Respiratory Disorders: Yes (ASTHMA, multiple episodes of pneumonia) Hx Cardiac Disorders: No Hx Psychiatric Problems: No Hx Miscellaneous Medical Probl: No Hx Alcohol Use: Yes Hx Substance Use: No Hx Tobacco Use: No FmHx Family History: No diabetes Physical Exam Vitals Vital Signs Date Temp Pulse Resp B/P (MAP) Pulse Ox O2 O2 Flow FiO2 Time Delivery Rate 09/25/18 91 19 129/76 93 Room Air 11:35 (93) 09/25/18 82 20 94 21 08:33 09/25/18 98.5 102 18 164/98 95 06:33 (120) Physical Exam GENERAL: Well-developed, well-nourished male. Appears in no acute distress. Speaking full sentences HEAD: Normocephalic, atraumatic. No deformities or ecchymosis. EYE: Pupils equal, round, and reactive to light. EOMs intact. No conjunctival erythema. No eye discharge. ENT: External ear without any masses or tenderness. Auditory canals clear bilaterally. TM visualized bilaterally, non-erythematous, non-bulging. Nasal mucosa pink with no discharge. Oropharynx is pink without any tonsillar erythema or exudates. No uvula deviation. No kissing tonsils. NECK: Supple. No meningismus. Normal ROM of the neck. LUNG: Bilateral expiratory wheezing noted. Productive cough noted. No abdominal retractions, no nasal flaring, no tripoding. HEART: Tachycardic. No murmurs, rubs or gallops. ABDOMEN: Soft, nontender, and nondistended. Positive bowel sounds in all four quadrants. No rebound tenderness, no guarding. (-) McBurney's point tenderness. No CVA tenderness. EXTREMITES: Equal pulses bilaterally. No peripheral clubbing, cyanosis or edema. No unilateral leg swelling. NEUROLOGIC: Alert and oriented to person, place and time. Moving all four extremities. 5/5 strength in all extremities. Normal speech. Steady gait. SKIN: Normal color. Warm and dry. No rashes or lesions. Results 24 hrs Current Medications Medications Dose Sig/Keturah Start Time Status Last (Trade) Ordered Route PRN Stop Time Admin Dose Reason Admin Ipratropium 1 mg ONCE STAT 09/25/18 DC 09/25/18 Natoma NEB 08:02 08:33 (Atrovent 09/25/18 08:03 0.02% (Neb)) Albuterol 10 mg ONCE STAT 09/25/18 DC 09/25/18 (Proventil INH 08:02 08:33 0.5% (Neb)) 09/25/18 08:03 10 mg ONCE STAT 09/25/18 DC 09/25/18 Dexamethasone IM 08:02 08:28 (Decadron) 09/25/18 08:03 Procedures/MDM ED COURSE: The patient was stable throughout ED course. I kept the patient and/or family informed of laboratory and diagnostic imaging results throughout the ED course. DIAGNOSTIC IMAGING: Read by radiologist. Patient: CRISTINO JHAVERI : 1960 Age: 58 Sex: M MR #: [id number] DOS: 09/25/18 0802 Ordering MD: YOLA QUIGLEY PA-C Location: [facility] Room/Bed: PROCEDURE: XR Chest. CLINICAL INDICATION: Asthma exacerbation TECHNIQUE: Single frontal view of the chest was obtained COMPARISON: CHEST 12/19/2017; CHEST 10/16/2017; CHEST 10/03/2017; CHIO CHEST 12/15/2016; CHIO CHEST 08/05/2016; CR CHEST 07/24/2016 FINDINGS: There is a rounded mass-like structure measuring 3.1 cm seen in the right lung base. Persistent prominence of the interstitial markings with peribronchial thickening likely suggestive of chronic bronchitis. Retrocardiac airspace and interstitial opacities suspicious for developing infiltrate. Cardiomediastinal silhouette is unchanged. No pneumothorax or pleural effusions. IMPRESSION: 1. Rounded mass-like structure measures 3.1 cm seen in the right lung base. Consider chest CT for further evaluation. 2. Retrocardiac patchy infiltrates suspicious for developing infiltrate. 3. Persistent prominence of the interstitial markings with peribronchial thickening suggestive of chronic bronchitis. RPTAT: PP Physician Mahendra Date Time Electronically viewed and signed by Physician Mahendra on 09/25/2018 09:34 rV/ CC: YOLA QUIGLEY PA-C [id number] Patient: CRISTINO JHAVERI : 1960 Age: 58 Sex: M MR #: [id number] DOS: 09/25/18 0956 Ordering MD: YOLA QUIGLEY PA-C Location: [facility] Room/Bed: PROCEDURE: CT Chest w/o IV Contrast CLINICAL INDICATION: Evaluate for right lower lobe lung mass on chest x-ray. Asthma exacerbation. Shortness of breath. TECHNIQUE: Contiguous axial imaging was performed through the chest without contrast. Coronal and sagittal reformatting was utilized. DICOM images are available. CTDIvol: 11.45 mGy mGy. Total Exam DLP: 436.22 mGy.cm mGy-cm. This CT exam was performed using one or more of the following dose reduction techniques: Automated exposure control, adjustment of the mA and/or kV according to patient size, use of iterative reconstruction technique. COMPARISON: Chest x-ray dated September 25, [address] dated July 02, 2017. FINDINGS: HEART: Heart is normal in size. Coronary calcifications are present. THYROID: Unremarkable for CT. ADENOPATHY: Multiple sub centimeter short axis mediastinal nodes are noted as well as a borderline sized 1.0 x 1.6 cm paraesophageal node on axial image 59 that appears stable. VASCULATURE: Unremarkable for this non-angiographic study. CENTRAL AIRWAYS: There is slight retained secretions within the trachea. RIGHT LUNG: Presumed right apical scarring is again seen. Multiple scattered small ground-glass foci are seen within the right lung with somewhat different distribution than seen on the prior. Bronchiectasis is present with lower lobe predominance and mild to moderate bronchial wall thickening and mostly cylindrical appearance. There are new posterolateral consolidative changes within the right lower lobe corresponding to the density noted on the chest x-ray. Scattered tiny tree in bud type opacities are again seen within the right lower lobe. LEFT LUNG: Presumed left apical pleural scarring is present with associated bronchiectasis. Multiple scattered small ground-glass foci are seen within the left lung with different distribution than on the prior exam. Bronchiectasis is present with apical and lower lobe predominance, mild to moderate bronchial wall thickening, and mostly cylindrical appearance. There is increased opacification of multiple left lower lobe bronchi. Scattered tree in bud type opacities are present throughout the left upper lobe with lobes. UPPER ABDOMEN: 1.4 cm left renal cyst is partially imaged. OTHER SOFT TISSUES: Unremarkable. OSSEOUS STRUCTURES: Unremarkable. IMPRESSION: 1. Mild consolidative changes within the right lower lobe, and the mass-like density noted on the chest x-ray. 2. Scattered small ground-glass foci are seen in both lungs with different distribution than seen on the prior chest CT. 3. There are associated tree in bud type opacities within the both lungs. 4. Mild to moderate primarily cylindrical bronchiectasis is present with mild to moderate bronchial wall thickening and increased presumed pneumonic ossification of multiple left lower lobe bronchi. 5. Changes are concerning for an infectious process. Atypical infections may be considered including mycobacterial and fungal infections given the patient's bronchiectasis. 6. Consider follow-up short-interval chest CT with clinical improvement to assess stability of these findings. RPTAT:HGST Mary Chi Physician Date Time Electronically viewed and signed by Mary Chi Physician on 09/25/2018 11:09 GT/ CC: YOLA QUIGLEY PA-C [id number] MEDICATIONS GIVEN: Albuterol/ipratropium, Decadron Patient tolerated medication well with no adverse reactions. Patient reported improvement in pain. MEDICAL DECISION MAKING: This is a 58-year-old male who presents the ER for concerns of asthma exacerbation. Patient states he said productive cough times 10 days.. Vital signs were reviewed. Patient was afebrile. Patient was not hypoxic. ENT exam was normal. Lung exam did reveal bilateral expiratory wheezing. Patient was given breathing treatment here in the ER. Patient also given Decadron. Chest x-ray was obtained. CXR showed 1. Rounded mass-like structure measures 3.1 cm seen in the right lung base. Consider chest CT for further evaluation. 2. Retrocardiac patchy infiltrates suspicious for developing infiltrate. 3. Persistent prominence of the interstitial markings with peribronchial thickening suggestive of chronic bronchitis. Given chest x-ray findings, CT imaging of the chest was obtained. CT chest showed 1. Mild consolidative changes within the right lower lobe, and the mass-like density noted on the chest x-ray. 2. Scattered small ground-glass foci are seen in both lungs with different distribution than seen on the prior chest CT. 3. There are associated tree in bud type opacities within the both lungs. 4. Mild to moderate primarily cylindrical bronchiectasis is present with mild to moderate bronchial wall thickening and increased presumed pneumonic ossification of multiple left lower lobe bronchi. 5. Changes are concerning for an infectious process. Atypical infections may be considered including mycobacterial and fungal infections given the patient's bronchiectasis. 6. Consider follow-up short-interval chest CT with clinical improvement to assess stability of these findings. Case is discussed with supervising physician Dr. Yarbrough. He reviewed the patient's CT imaging and agreed that patient was stable for outpatient management.. I had a discussion with the patient as well about imaging studies. Patient denies being homeless, denied recent weight loss, denies hemoptysis, denied night sweats. 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 Patient was given a copy of imaging studies. Upon reexamination, patient reported improvement in symptoms. Patient's wheezing was improved. Patient displayed no signs of acute respiratory distress at the ED course. Patient had no abdominal retractions, no nasal flaring, no tripoding. At this time, the patient's presentation is most consistent with pneumonia, lung mass, asthma exacerbation. Low suspicion for acute respiratory distress, DVT, CHF, meningitis, sinusitis, otitis externa, acute otitis media, strep pharyngitis, epiglottitis or peritonsillar abscess. Patient was nontoxic, [id number] prior to discharge. PRESCRIPTIONS: Doxycycline, albuterol inhaler DISCHARGE: At this time, patient is stable for discharge and outpatient management. Supportive therapies such as OTC throat lozenges, salt water gurgles, popsicles and jello discussed. I have instructed the patient to follow-up with his/her primary care physician in 1-2 days. I have instructed the patient to promptly return to the ER for any new or worsening symptoms including increased pain, swelling, fever, nausea, vomiting, weakness or difficulty breathing. The patient and/or family expressed understanding of and agreement with this plan. All questions were answered. Home care instructions were provided. Disclaimer: Inadvertent spelling and grammatical errors are likely due to EHR/dictation software use and do not reflect on the overall quality of patient care. Also, please note that the electronic time recorded on this note does not necessarily reflect the actual time of the patient encounter. Departure Diagnosis: Primary Impression: Asthma exacerbation Asthma severity: unspecified severity Asthma persistence: unspecified Qualified Codes: J45.901 - Unspecified asthma with (acute) exacerbation Additional Impressions: Pneumonia Pneumonia type: due to unspecified organism Laterality: unspecified laterality Lung location: unspecified part of lung Qualified Codes: J18.9 - Pneumonia, unspecified organism Lung mass Condition: Fair Patient Instructions: Asthma Referrals: [facility] YOU HAVE RECEIVED A MEDICAL SCREENING EXAM AND THE RESULTS INDICATE THAT YOU DO NOT HAVE A CONDITION THAT REQUIRES URGENT TREATMENT IN THE EMERGENCY DEPARTMENT. FURTHER EVALUATION AND TREATMENT OF YOUR CONDITION CAN WAIT UNTIL YOU ARE SEEN IN YOUR DOCTORS OFFICE WITHIN THE NEXT 1-2 DAYS. IT IS YOUR RESPONSIBILITY TO MAKE AN APPOINTMENT FOR FOLOW-UP CARE. IF YOU HAVE A PRIMARY DOCTOR --you should call your primary doctor and schedule an appointment IF YOU DO NOT HAVE A PRIMARY DOCTOR YOU CAN CALL OUR PHYSICIAN REFERRAL HOTLINE AT IF YOU CAN NOT AFFORD TO SEE A PHYSICIAN YOU CAN CHOSE FROM THE FOLLOWING [facility] [address] [facility] [address] [facility] [address] [facility] [facility] [address] [facility] [address] [facility]. [address] [facility] [facility] YOU HAVE RECEIVED A MEDICAL SCREENING EXAM AND THE RESULTS INDICATE THAT YOU DO NOT HAVE A CONDITION THAT REQUIRES URGENT TREATMENT IN THE EMERGENCY DEPARTMENT. FURTHER EVALUATION AND TREATMENT OF YOUR CONDITION CAN WAIT UNTIL YOU ARE SEEN IN YOUR DOCTORS OFFICE WITHIN THE NEXT 1-2 DAYS. IT IS YOUR RESPONSIBILITY TO MAKE AN APPOINTMENT FOR FOLOW-UP CARE. IF YOU HAVE A PRIMARY DOCTOR --you should call your primary doctor and schedule and appointment IF YOU DO NOT HAVE A PRIMARY DOCTOR YOU CAN CALL OUR PHYSICIAN REFERRAL HOTLINE AT . IF YOU CAN NOT AFFORD TO SEE A PHYSICIAN YOU CAN CHOSE FROM THE FOLLOWING [facility] INSTITUTIONS: [facility] [address] [place] [address] [facility] [address] [place] [address] [facility] [address] [place] [address] Additional Instructions: Stop smoking. Follow up with your drawstring knotter. Call your primary care doctor TOMORROW for an appointment during the next 1-2 days.See the doctor sooner or return here if your condition worsens before your appointment time. YOLA QUIGLEY PA-C Sep 25, 2018 08:10
[2018-09-25] MEDS ORDERED: ALBU8.5H8 INH (11:21)
[2018-09-25] MEDS ORDERED: DOXY100T20 PO (11:22)
[2018-09-25 11:35] VITALS: BP 129/76; PULSE 91; RESP 19
== END 2018-09-25 11:36 | disposition home or self-care (01) ==
LOC: FTE 06:30
DX: J45.901 Unspecified asthma with (acute) exacerbation (principal); J18.9 Pneumonia, unspecified organism; R91.8 Other nonspecific abnormal finding of lung field
CPT/HCPCS: 71045; 71250; 94644; 96372; J1100; Z7502; Z7610

== ENCOUNTER 2018-10-16 21:31 | Emergency (ER) | payer BC ==
[~2018-10-16] VITALS: Ht 165.1 cm; Wt 83.4 kg
[~2018-10-16 21:31] MED LIST changes: +DOXY100T20 PO
[2018-10-16 21:54] VITALS: Ht 165.1 cm; Wt 83.4 kg
[2018-10-16] MEDS ORDERED: IPRATROPIUM (NEB) 0.5 MG/2.5 ML AMP INH STA (22:40)
[2018-10-16] MEDS ORDERED: ALBUTEROL 0.5% (NEB) 2.5 MG/0.5 ML AMP INH STA (22:40)
[2018-10-16] MEDS ORDERED: DEXAMETHASONE 10 MG/ML 1 ML INJ IM STA (22:40)
[2018-10-17 00:18] VITALS: BP 129/74; PULSE 79; RESP 22
[2018-10-17] MEDS ORDERED: BUDE6HFA INHALATION (00:27)
[2018-10-17] MEDS ORDERED: PRED20TA PO (00:27)
[2018-10-17] MEDS ORDERED: D-ME473S2 PO (00:27)
--- NOTE | 2018-10-17 00:44 | ERD ---
ER Documentation Chief Complaint Chief Complaint cough x 1 day. hx of bronchitis HPI This is a 58-year-old male with history of nicotine abuse several years ago presents to the ED complaining of productive cough times 3 weeks. Patient was originally seen here where CT and x-rays were done revealing a possible infec tious process and right lower lobe density. He was treated with outpatient antibiotics, given an albuterol inhaler and told to follow-up with his contract associate manager. Patient states he also takes Symbicort but ran out of this 2 weeks ago and has since been having worsening cough and shortness of breath. He also reports chest pain, mostly when coughing. He states he has an appointment with his contract associate manager on November 04. He is mostly requesting a breathing treatment and a refill of his Symbicort. He denies any nausea, vomiting, dental pain or any other symptoms. ROS All systems reviewed and are negative except as per history of present illness. Medications Home Meds Active Scripts Dextromethorphan Hb-Promethazine Hcl* (Promethazine DM* Syrup) 473 Ml Syrup, 5 ML PO Q6 PRN for COUGH for 7 Days, ML Prov:DISHIGRIKIANMIRIAM PA-C 10/17/18 Prednisone* (Prednisone*) 20 Mg Tab, 40 MG PO DAILY for 5 Days, TAB Prov:SHAYNEIGRIKIANMIRIAM PA-C 10/17/18 Budesonide-Formoterol Fumarate* (Symbicort*) 160-4.5 Hfa.aer.ad, 2 PUFF INHALATION BID, #1 EACH Prov:SHAYNEIGRIKIBERNA SHERIDANUR Zaina PA-C 10/17/18 Doxycycline Hyclate* (Doxycycline Hyclate*) 100 Mg Tablet.dr, 100 MG PO BID for 7 Days, TAB Prov:YOLA QUIGLEYC 09/25/18 Albuterol Sulfate* (Proair HFA*) 8.5 Gm Hfa.aer.ad, 2 PUFF INH Q4, #1 INHALER Prov:YOLA QUIGLEYC 09/25/18 Albuterol Sulfate* (Albuterol Sulfate* Neb) 0.083%-3 Ml Neb, 2.5 MG NEB Q4 PRN for SHORTNESS OF BREATH, #30 EA Prov:LUIS DANIEL BRANNON MD 02/27/18 Beclomethasone Dipropionate (Qvar Redihaler (80 MCG)) 10.6 Gm Hfa.aeroba, 10.6 GM IH BID, #1 INH Prov:LUIS DANIEL BRANNON MD 02/27/18 Albuterol Sulfate* (Proair HFA*) 8.5 Gm Hfa.aer.ad, 2 PUFF INH Q4, #1 INHALER Prov:LUIS DANIEL BRANNON MD 02/27/18 Levofloxacin* (Levaquin*) 750 Mg Tablet, 750 MG PO DAILY for 10 Days, TAB Prov:LUIS DANIEL BRANNON MD 02/27/18 Albuterol Sulfate* (Ventolin HFA*) 18 Gm Hfa.aer.ad, 2 PUFF INHALATION Q4H, #1 INHALER Prov:GENARO WILLETT 12/19/17 Albuterol Sulfate* (Albuterol Sulfate* Neb) 0.083%-3 Ml Neb, 2.5 MG NEB Q4H, #30 VIAL Prov:GENARO WILLETT DO 12/19/17 Allergies Allergies: Coded Allergies: No Known Drug Allergies (Unverified Allergy, Unknown, 02/27/18) PMhx/Soc History of Surgery: No Anesthesia Reaction: No Hx Neurological Disorder: No Hx Respiratory Disorders: Yes (ASTHMA, multiple episodes of pneumonia) Hx Cardiac Disorders: No Hx Psychiatric Problems: No Hx Miscellaneous Medical Probl: No Hx Alcohol Use: Yes Hx Substance Use: No Hx Tobacco Use: No Smoking Status: Never smoker Physical Exam Vitals Vital Signs Date Temp Pulse Resp B/P (MAP) Pulse Ox O2 O2 Flow FiO2 Time Delivery Rate 10/17/18 98.6 79 22 129/74 94 Room Air 00:18 (92) 10/16/18 95 22 89 21 23:09 10/16/18 99.6 97 18 131/70 92 21:54 (90) Physical Exam Const: No acute respiratory distress, O2 saturation of 92% on room air. Head: Atraumatic Eyes: Normal Conjunctiva ENT: Normal External Ears, Nose and Mouth. Neck: Full range of motion. No meningismus. Resp: + Decreased breath sounds, diffuse wheezing and rales. No tachypnea. No accessory muscle use. Cardio: Regular rate and rhythm, no murmurs Abd: Soft, non tender, non distended. Normal bowel sounds Skin: No petechiae or rashes Back: No midline or flank tenderness Ext: No cyanosis, or edema Neur: Awake and alert Psych: Normal Mood and Affect Results 24 hrs Current Medications Medications Dose Sig/[place] Start Time Status Last (Trade) Ordered Route PRN Stop Time Admin Dose Reason Admin Albuterol 10 mg ONCE STAT 10/16/18 DC 10/16/18 (Proventil INH 22:40 10/16/18 23:08 0.5% (Neb)) 22:42 Ipratropium 1 mg ONCE STAT 10/16/18 DC 10/16/18 [place] INH 22:40 10/16/18 23:09 (Atrovent 22:42 0.02% (Neb)) 10 mg ONCE STAT 10/16/18 DC 10/16/18 Dexamethasone IM 22:40 10/16/18 22:55 (Decadron) 22:42 Procedures/MDM ED PROCEDURES: 12-lead EKG interpretation as interpeted by Dr. Verma Normal Sinus Rhythm with ventricular rate of 93 beats per minute Incomplete right bundle branch block. No acute ST or T wave changes suggestive of acute ischemia or STEMI. ED COURSE: The patient was given 1 treatment of albuterol, Atrovent and IM Decadron. The medication was well tolerated and the patient had market improvement in symptoms. The patient remained stable throughout ED course. MEDICAL DECISION MAKING: This is a 58-year-old male with history of nicotine abuse who presents with shortness of breath and wheezing. He is hypoxic here with an O2 saturation 92%. He was immediately placed on a monitor, given 6 L of O2 via nasal cannula and a 1 hour long treatment of albuterol, Atrovent and IM Decadron. He initially had wheezing and rales on physical exam however this improved status post treatment. He was originally seen here about a month ago where a CT and chest x-rays were done revealing an infectious process and possible masslike density on the right lower lobe. He was treated with outpatient antibiotics. He came in again today requesting a breathing treatment and refill of Symbicort. I did not think repeat imaging was indicated at this time. He has an appointment with his contract associate manager in 14 days. He was given copies of his imaging reports to provide for his contract associate manager. I refilled his Symbicort, also provided prednisone and promethazine DM. I suspect patient has COPD exacerbated by bronchitis. His symptoms stabilized here in the ED. O2 saturation increased to 94% on room air, patient felt better and wanted to go home. Strict return precautions were discussed. PRESCRIPTIONS: Symbicort, prednisone, promethazine DM SPECIALIST FOLLOW UP RECOMMENDED: None Patient has been advised to follow up with primary care in 1-2 days. Blood Pressure Assessment: Patient's blood pressure was elevated (>120/80) but appears stable without evidence of hypertension emergency or urgency. The patie nt was counseled about the risks of hypertension and urged to pursue outpatient monitoring and therapy within a week with their primary care physician. Departure Diagnosis: Primary Impression: Asthma exacerbation Asthma severity: moderate Asthma persistence: persistent Qualified Codes: J45.41 - Moderate persistent asthma with (acute) exacerbation Additional Impression: Bronchitis Condition: Stable Patient Instructions: COPD: Using Inhalers Referrals: COMMUNITY CLINICS YOU HAVE RECEIVED A MEDICAL SCREENING EXAM AND THE RESULTS INDICATE THAT YOU DO NOT HAVE A CONDITION THAT REQUIRES URGENT TREATMENT IN THE EMERGENCY DEPARTMENT. FURTHER EVALUATION AND TREATMENT OF YOUR CONDITION CAN WAIT UNTIL YOU ARE SEEN IN YOUR DOCTORS OFFICE WITHIN THE NEXT 1-2 DAYS. IT IS YOUR RESPONSIBILITY TO MAKE AN APPOINTMENT FOR [facility] CARE. IF YOU HAVE A PRIMARY DOCTOR --you should call your primary doctor and schedule an appointment IF YOU DO NOT HAVE A PRIMARY DOCTOR YOU CAN CALL OUR PHYSICIAN REFERRAL HOTLINE AT IF YOU CAN NOT AFFORD TO SEE A PHYSICIAN YOU CAN CHOSE FROM THE FOLLOWING [facility] CLINICS [facility] [address] [facility]. [facility] [address] [facility] [address] [facility] [facility] [address] [facility] [address]. [facility]. [address] [facility]. [facility] YOU HAVE RECEIVED A MEDICAL SCREENING EXAM AND THE RESULTS INDICATE THAT YOU DO NOT HAVE A CONDITION THAT REQUIRES URGENT TREATMENT IN THE EMERGENCY DEPARTMENT. FURTHER EVALUATION AND TREATMENT OF YOUR CONDITION CAN WAIT UNTIL YOU ARE SEEN IN YOUR DOCTORS OFFICE WITHIN THE NEXT 1-2 DAYS. IT IS YOUR RESPONSIBILITY TO MAKE AN APPOINTMENT FOR FOLOW-UP CARE. IF YOU HAVE A PRIMARY DOCTOR --you should call your primary doctor and schedule and appointment IF YOU DO NOT HAVE A PRIMARY DOCTOR YOU CAN CALL OUR PHYSICIAN REFERRAL HOTLINE AT . IF YOU CAN NOT AFFORD TO SEE A PHYSICIAN YOU CAN CHOSE FROM THE FOLLOWING [facility]IONS: [facility] [address] [place] [address] [facility] [address] [place], [place] [id number] [place] [address] [address] [place] [address] [facility] URGENT CARE/SPECIALTIES Additional Instructions: Please take copies of your x-ray and CT to your contract associate manager appointment in the next few weeks. Take the inhalers and the prednisone for the next few days. Return here for any new or worsening symptoms. MIRIAM LEIVA PA-C Oct 17, 2018 00:39
== END 2018-10-17 00:34 | disposition home or self-care (01) ==
LOC: FTE 21:31
DX: J45.41 Moderate persistent asthma with (acute) exacerbation (principal); J40 Bronchitis, not specified as acute or chronic
CPT/HCPCS: 94644; 96372; J1100; Z7502; Z7610

== ENCOUNTER 2019-05-14 11:59 | Emergency (ER) | payer BC ==
[~2019-05-14] VITALS: Ht 170.2 cm; Wt 81.0 kg
[~2019-05-14 11:59] MED LIST changes: +BUDE6HFA INHALATION; +CLIN300C10 PO; +D-ME473S2 PO; +DOXY-214 PO; -DOXY100T20 PO; +HYDR-4011 PO; +PRED20TA PO
[2019-05-14 12:04] VITALS: Ht 170.2 cm; Wt 81.0 kg
[2019-05-14] MEDS ORDERED: ALBUTEROL 0.083% (NEB) 2.5 MG/3 ML AMP HHN STA (12:40)
[2019-05-14] MEDS ORDERED: CLINDAMYCIN 600 MG INJ IM ONE (13:00)
[2019-05-14] MEDS ORDERED: IPRATROPIUM (NEB) 0.5 MG/2.5 ML AMP HHN ONE (13:00)
[2019-05-14] MEDS ORDERED: DEXAMETHASONE 10 MG/ML 1 ML INJ IM ONE (13:00)
[2019-05-14] MEDS ORDERED: CLINDAMYCIN 300 MG INJ IM ONE (13:00)
[2019-05-14 14:27] VITALS: BP 156/88; PULSE 86; RESP 18
== END 2019-05-14 14:28 | disposition home or self-care (01) ==
LOC: FTE 11:59
DX: K04.7 Periapical abscess without sinus (principal); J45.901 Unspecified asthma with (acute) exacerbation; R06.02 Shortness of breath
CPT/HCPCS: 94664; 96372; J1100; Z7502; Z7610